=== PATIENT | female | born 1975 | race Caucasian/White ===

== ENCOUNTER → 2020-06-04 | Outpatient (CLI) | payer BC ==
--- NOTE | 2020-06-04 13:18 | XR ---
EXAMINATION TYPE: XR Hip Complete LT DATE OF EXAM: 06/04/2020 COMPARISON: NONE HISTORY: Pain TECHNIQUE: 2 views submitted FINDINGS: There is no evidence of erosive change or acute fracture. Calcifications the pelvis likely vascular. IMPRESSION: 1. No evidence of acute fracture or dislocation.
== END | disposition home or self-care (01) ==
LOC: RADXRMAIN 10:32
PROVIDERS: ATTEND Physician Assistant Medical
DX: M25.552 Pain in left hip (principal)
CPT/HCPCS: 73502

== ENCOUNTER → 2020-06-18 | Outpatient (CLI) | payer BC ==
--- NOTE | 2020-06-19 09:13 | MM ---
Reason for exam: screening (asymptomatic). Baseline mammogram. History: Taking hormonal contraceptives for 15 years. Physical Findings: Nurse did not find any significant physical abnormalities on exam. MG Screening Mammo w CAD Bilateral CC, MLO, and XCCL view(s) were taken. The breast tissue is heterogeneously dense. This may lower the sensitivity of mammography. There is no discrete abnormality. These results were verbally communicated with the patient and result sheet given to the patient on 06/18/20. ASSESSMENT: Negative, BI-RAD 1 RECOMMENDATION: Routine screening mammogram of both breasts in 1 year.
== END | disposition home or self-care (01) ==
LOC: RADMAMWWP 13:52
PROVIDERS: ATTEND Family Medicine
DX: Z12.31 Encounter for screening mammogram for malignant neoplasm of breast (principal)
CPT/HCPCS: 77067

== ENCOUNTER 2020-07-23 10:37 | Emergency (ER) | payer BC ==
[2020-07-23 10:46] VITALS: BP 131/79; PULSE 98; RESP 18; TEMP 97.9
[2020-07-23] MEDS ORDERED: APIXABAN 5 MG TAB PO STA (12:10)
--- NOTE | 2020-07-23 12:50 | ED ---
Extremity Problem HPI - General Chief complaint: Extremity Problem,Nontraumatic Stated complaint: Sent from for DVT Time Seen by Provider: 07/23/20 10:47 Source: patient Mode of arrival: ambulatory Limitations: no limitations - History of Present Illness Initial comments: Patient is a 44-year-old female presenting to the emergency department from her PCPs office after discovering a DVT on ultrasound today. Patient states she has been having left leg pain it's been increasing over the past 3 weeks but the pain significantly increased over the past few days. She does have history of left-sided sciatica and thought it was that however the pain and swelling in her left calf increased over the past few days. She denies any chest pain or shortness of breath. She is recovering from Covid, she was diagnosed in January. She has been using inhalers intermittently as needed for shortness of breath. She recently went back to the gym to start working out again. Per the doctor's office, DVT was large and in the femoral vein and the recommended coming into the ER for further evaluation. She has no further complaints at this time. She has no history of DVT, she is not on a blood thinner. Her vital signs are stable upon arrival. - Related Data Home Medications Medication Instructions Recorded Confirmed Albuterol Sulfate [Albuterol 2 puff PO RT-Q4H PRN 07/23/20 07/23/20 Sulfate Hfa] Amitriptyline HCl 10 mg PO HS 07/23/20 07/23/20 Budesonide [Pulmicort Flexhaler] 2 puff INHALATION RT-HS 07/23/20 07/23/20 Cyclobenzaprine HCl 10 mg PO BID 07/23/20 07/23/20 DULoxetine HCL [Cymbalta] 60 mg PO DAILY 07/23/20 07/23/20 Levothyroxine Sodium [Synthroid] 37.5 mcg PO DAILY 07/23/20 07/23/20 SUMAtriptan succinate [Sumatriptan 6 mg SQ ONCE PRN 07/23/20 07/23/20 Succinate] Setlakin 0.15-0.03 Mg 1 tab PO DAILY 07/23/20 07/23/20 Thyroid,Pork [Director Customer Thyroid] 30 mg PO DAILY 07/23/20 07/23/20 Previous Rx's Medication Instructions Recorded Apixaban [Eliquis] 0 mg PO DIRECTED #74 tablet 07/23/20 Allergies Allergy/AdvReac Type Severity Reaction Status Date / Time Sulfa (Sulfonamide Allergy Unknown Verified 07/23/20 11:34 Antibiotics) Review of Systems ROS Statement: Those systems with pertinent positive or pertinent negative responses have been documented in the HPI. ROS Other: All systems not noted in ROS Statement are negative. Past Medical History Past Medical History: No Reported History History of Any Multi-Drug Resistant Organisms: None Reported Past Surgical History: Prostate Surgery Past Psychological History: No Psychological Hx Reported Smoking Status: Never smoker Past Alcohol Use History: None Reported Past Drug Use History: None Reported General Exam - General Exam Comments Initial Comments: GENERAL: Patient is well-developed and well-nourished. Patient is nontoxic and in no acute distress. HEAD: Atraumatic, normocephalic. EYES: Pupils equal round and reactive to light, extraocular movements intact, sclera anicteric, conjunctiva are normal. Eyelids were unremarkable. ENT: TMs normal, nares patent, oropharynx clear without exudates. Moist mucous membranes. NECK: Normal range of motion, supple without lymphadenopathy or JVD. LUNGS: Unlabored respirations. Breath sounds clear to auscultation bilaterally and equal. No wheezes rales or rhonchi. HEART: Regular rate and rhythm without murmurs, rubs or gallops. ABDOMEN: Soft, nontender, normoactive bowel sounds. No guarding, no rebound. No masses appreciated. : Deferred MUSCULOSKELETAL: Homer and has pain with palpation of the left calf, left posterior knee. She does have swelling of the left lower leg when compared to the right. There is no erythema. She is neurovascular intact, bilateral normal orthopedist pulses. Rest of extremities with adequate strength and normal range of motion. No clubbing or cyanosis. NEUROLOGICAL: Patient is alert and oriented x 3. Motor and sensory are also intact. Cranial nerves II through XII grossly intact. Symmetrical smile. Normal speech, normal gait. PSYCH: Normal mood, normal affect. SKIN: Warm, Dry, normal turgor, no rashes or lesions noted. Limitations: no limitations Course Vital Signs 07/23/20 10:43 Temperature 97.9 F Pulse Rate 98 Respiratory 18 Rate Blood Pressure 131/79 O2 Sat by Pulse 98 Oximetry Medical Decision Making - Medical Decision Making Patient is a 44-year-old female sent in for her doctor's office after this discovering a DVT today and an outpatient ultrasound. She's been having left leg pain increasing over the past 3 weeks. She does have swelling noted to the left lower leg, positive calf pain. Increases when she ambulates. Her vital signs are stable. No chest pain or shortness of breath. I did speak to the agricultural technical officer at Dr. Montes's office who performed the patient's ultrasound today, the report is not ready as the radiologist's has not reviewed get however she verbally confirmed that the blood clot does not extend up into the external iliac vein or the common femoral vein. It does extend from the femoral vein down to the popliteal vein. I did speak with Dr. Krishnamurthy who is okay with starting patient on anticoagulant and discharged home with follow-up in the office. We did start patient on eliquis, first dose given in the ER. Rest of prescription sent to pharmacy. Patient is stable for discharge. She is in agreement with this plan of care. I also recommended elevation, compression. Patient will follow up with vascular surgeon. Return parameters were discussed with the patient she verbalized understanding. Case discussed with Dr. Vigil. Disposition Clinical Impression: Deep vein thrombosis (DVT) of left lower extremity, Left leg pain Disposition: HOME SELF-CARE Condition: Stable Instructions (If sedation given, give patient instructions): Deep Vein Thrombosis (ED) Additional Instructions: Please return to the Emergency Department if symptoms worsen or any other concerns. Take medication as prescribed. Follow-up with vascular doctor as discussed. Prescriptions: Apixaban [Eliquis] 0 mg PO DIRECTED #74 tablet Is patient prescribed a controlled substance at d/c from ED?: No Referrals: Cesar Mcginnis MD [Primary Care Provider] - 1-2 days Uriah Krishnamurthy DO [Doctor of Osteopathic Medicine] - 1-2 days Time of Disposition: 12:50
[2020-07-23] MEDS ORDERED: ACET/COD 300 MG/30 MG STARTER PACK 6 TAB BTL PO STA (13:06)
== END 2020-07-23 13:08 | disposition home or self-care (01) ==
LOC: EC 10:37
DX: I82.402 Acute embolism and thrombosis of unspecified deep veins of left lower extremity (principal)
CPT/HCPCS: 99283

== ENCOUNTER → 2020-12-02 | Outpatient (CLI) | payer BC ==
--- NOTE | 2020-12-02 18:27 | CONS ---
CONSULTATION DATE OF SERVICE: 12/02/2020. 45-year-old lady has been evaluated in [facility] for excessive daytime sleepiness and for possible obstructive sleep apnea-hypopnea syndrome. SLEEP SCHEDULE: Patient's usual sleep schedule from 10 p.m. to 5 a.m. on weekdays and from 10 p.m. to 8 a.m. on weekends. FALLING ASLEEP: Sometimes she has problems with falling asleep, but not for very long time. She has TV set in bedroom. She usually sleeps on the back and side position. According to her , she snores and she wakes up from sleep up to 4 times with up to 2 episodes of nocturia. Sometimes episodes of leg jerking during the night and restless leg symptoms. In the morning, the patient wakes up tired. Falling asleep during the day. [place] Sleepiness Scale is 9. She has problems with concentration and irritability. PAST MEDICAL HISTORY: Positive for hypothyroidism, left leg deep venous thrombosis, migraine. PAST SURGICAL HISTORY: Tonsillectomy, uterus ablation. MEDICATIONS: Synthroid 75 mcg, [place] 40 mcg once a day, Eliquis 2.5 mg once a day, duloxetine 60 mg once a day, Nortek as needed for migraines. SOCIAL HISTORY: Positive for smoking about half pack a day for 20 years, quit 8 years ago. Alcohol consumption: None. FAMILY HISTORY: Snoring. REVIEW OF SYSTEMS: Snoring, awakenings from sleep, sleepiness during the day. PHYSICAL EXAMINATION: GENERAL: lady without distress. BP 136/83, HR 89, RR 12, height 5 feet 6 inches, weight 255, body mass index 41.3, temperature 97.1, oxygen saturation at room air 98%. Oropharynx: Low position of soft palate, Mallampati 2-3. NECK 14 inches in circumference. Neck: Supple, no JVD. Thyroid is not palpable. LUNGS: Clear to percussion and to auscultation. Good air exchange. No wheezing or rhonchi. HEART: S1, S2 regular. No murmurs, gallops, or rubs. ABDOMEN: Obese. Soft and nontender. Bowel sounds are present. No organomegaly appreciated. EXTREMITIES: No clubbing or cyanosis. TELEHEALTH NURSE EDUCATOR: Awake, alert, and oriented X3. Cranial nerves 2 to 7 intact. There is no fasciculation or atrophy. noted. No focal deficits observed. IMPRESSION: 1. Snoring, multiple awakenings from sleep, episodes of excessive daytime sleepiness, possible obstructive sleep apnea-hypopnea syndrome. 2. Obesity, BMI 41.3. 3. Jerking movements during the sleep, possibly periodic limb movements. 4. Restless leg symptoms. 5. Status post uterus ablation. 6. Hypothyroidism. 7. Status post left leg deep venous thrombosis. 8. Migraines. 9. Status post tonsillectomy. PLAN: 1. I will proceed with home sleep apnea test to check patient breathing during sleep. 2. If sleep study will be negative for obstructive sleep apnea, we should proceed with polysomnogram to check the patient leg movements during sleep with following multiple sleep latency test for objective evaluation of her symptoms of excessive daytime sleepiness. Her main complain during this visit is sleepiness and tiredness. 3. Sleep hygiene with time in bed for at least 8 hours. 4. No driving if feeling sleepiness. 5. Losing weight. 6. I will see patient for follow up visit to explain results of testing and following plan. Thank you very much for referring this patient for consultation. Sincerely, Andi Ospina MD, PhD, FAASM Diplomat of [employer] Sleep Medicine Board of [employer] Claim Representative of [facility] [place] MMODL / ROBELN: [id number] /
== END | disposition home or self-care (01) ==
LOC: SLEEP 13:58
PROVIDERS: ATTEND Internal Medicine
DX: G47.33 Obstructive sleep apnea (adult) (pediatric) (principal); E66.9 Obesity, unspecified; Z68.41 Body mass index [BMI] 40.0-44.9, adult; E03.9 Hypothyroidism, unspecified; G43.909 Migraine, unspecified, not intractable, without status migrainosus
CPT/HCPCS: 99211

== ENCOUNTER → 2022-10-12 | Outpatient (CLI) | payer BC ==
--- NOTE | 2022-10-12 10:14 | MM ---
Reason for Exam: Screening (asymptomatic). Last mammogram was performed 2 year(s) and 4 month(s) ago. Patient History: Menarche at age 12. Perimenopausal. Hormonal Contraceptives for 15 years until age 45. Last menstrual period: 09/28/2022 Risk Values: Meggan 5 year model risk: 0.6%. NCI Lifetime model risk: 6.8%. Prior Study Comparison: 06/18/2020 Bilateral Screening Mammogram, [facility]. Tissue Density: The breast tissue is heterogeneously dense. This may lower the sensitivity of mammography. Findings: Analyzed By CAD. There is no suspicious group of microcalcifications within either breast. No suspicious mass in the left breast. Asymmetry demonstrated within the inferior right breast only on the MLO view at middle depth. Overall Assessment: Incomplete: need additional imaging evaluation, BI-RAD 0 Management: Diagnostic Mammogram of the right breast. A clinical breast exam by your physician is recommended on an annual basis and results should be correlated with mammographic findings. [facility] will attempt to contact patient to return for supplemental views and ultrasound if indicated. Note on Meggan scores and lifetime risk: 1. A Meggan score greater than 3% is considered moderate risk. If this is the case, consider specialist referral to assess eligibility for a risk reducing agent. If overall lifetime risk for the development of breast cancer is 20% or higher, the patient may qualify for future screening with alternating mammogram and breast MRI. Electronically signed and approved by: Christian Tirado D.O.
== END | disposition home or self-care (01) ==
LOC: RADMAMWWP 07:24
PROVIDERS: ATTEND Family Medicine
DX: Z12.31 Encounter for screening mammogram for malignant neoplasm of breast (principal)
CPT/HCPCS: 77067

== ENCOUNTER → 2022-10-17 | Outpatient (CLI) | payer BC ==
--- NOTE | 2022-10-17 08:46 | MM ---
Reason for Exam: Additional evaluation requested from abnormal screening. Last screening mammogram was performed less than 1 month ago. Patient History: Menarche at age 12. Perimenopausal. Hormonal Contraceptives for 15 years until age 45. Risk Values: Meggan 5 year model risk: 0.6%. NCI Lifetime model risk: 6.8%. Tissue Density: Right: There are scattered fibroglandular densities. Findings: Analyzed By CAD. Area of concern compresses on spot compression imaging. No new suspicious masses, calcifications or distortions. Overall Assessment: Benign, BI-RAD 2 Management: Screening Mammogram of both breasts in 1 year. Results were given to the patient verbally at the time of exam. Patient should continue monthly self-breast exams. A clinical breast exam by your physician is recommended on an annual basis. This exam should not preclude additional follow-up of suspicious palpable abnormalities. Note on Meggan scores and lifetime risk: 1. A Meggan score greater than 3% is considered moderate risk. If this is the case, consider specialist referral to assess eligibility for a risk reducing agent. 2. If overall lifetime risk for the development of breast cancer is 20% or higher, the patient may qualify for future screening with alternating mammogram and breast MRI. Electronically signed and approved by: Ben Miller DO
== END | disposition home or self-care (01) ==
LOC: RADMAMWWP 08:19
PROVIDERS: ATTEND Family Medicine
DX: R92.8 Other abnormal and inconclusive findings on diagnostic imaging of breast (principal)
CPT/HCPCS: 77061; 77065

== ENCOUNTER → 2024-01-10 | Outpatient (CLI) | payer BC ==
--- NOTE | 2024-01-11 10:31 | MM ---
Reason for Exam: Screening (asymptomatic). Last mammogram was performed 1 year(s) and 2 month(s) ago. Patient History: Menarche at age 12. Patient has no children. Perimenopausal. Hormonal Contraceptives for 15 years until age 45. Risk Values: Meggan 5 year model risk: 1.0%. NCI Lifetime model risk: 10.2%. Prior Study Comparison: 06/18/2020 Bilateral Screening Mammogram, [facility]. 10/12/2022 Bilateral MG screening mammo w CAD, [facility]. 10/17/2022 Right MG 3D work up w/cad RT, [facility]. Tissue Density: The breasts are heterogeneously dense, which may obscure small masses. Findings: Analyzed By CAD. There is increasing global asymmetry right upper outer quadrant middle to posterior depth. This may represent superimposition shadow but further evaluation is recommended. Other areas of asymmetric density remain unchanged. Overall Assessment: Incomplete: need additional imaging evaluation, BI-RAD 0 Management: Special View Mammogram of the right breast. Diagnostic Breast Ultrasound of the right breast. . [facility] will attempt to contact patient to return for supplemental views and ultrasound if indicated. [facility], , 01/11/2024 10:28 AM. Electronically signed and approved by: Sunitha Watt M.D. Radiologist
== END | disposition home or self-care (01) ==
LOC: RADMAMWWP 07:05
PROVIDERS: ATTEND Family Medicine
CPT/HCPCS: 77063; 77067

== ENCOUNTER → 2024-01-19 | Outpatient (CLI) | payer BC ==
--- NOTE | 2024-01-19 07:44 | MM ---
Reason for Exam: Additional evaluation requested from abnormal screening. Last screening mammogram was performed less than 1 month ago. Patient History: Menarche at age 12. Patient has no children. Postmenopausal. Hormonal Contraceptives for 15 years until age 45. Risk Values: Meggan 5 year model risk: 1.0%. NCI Lifetime model risk: 10.2%. Prior Study Comparison: 06/18/2020 Bilateral Screening Mammogram, [facility]. 10/12/2022 Bilateral MG screening mammo w CAD, [facility]. 10/17/2022 Right MG 3D work up w/cad RT, [facility]. 01/10/2024 Bilateral MG 3D screening mammo w/cad, [facility]. Tissue Density: Right: The breasts are heterogeneously dense, which may obscure small masses. Findings: Analyzed By CAD. Abdomen appears stable Focal asymmetry in the upper outer right breast disperses normally on compression. No suspicious asymmetry on the medial lateral view. No suspicious groups of microcalcifications, spiculated or lobular masses, architectural distortion or other secondary signs of malignancy are mammographically apparent. Overall Assessment: Benign, BI-RAD 2 Management: Screening Mammogram of both breasts in 1 year. A negative mammogram report should not preclude additional follow up of suspicious palpable abnormalities. Patient should continue monthly self breast exam. A clinical breast exam by your physician is recommended on an annual basis and results should be correlated with mammographic findings. Note on Meggan scores and lifetime risk: 1. A Meggan score greater than 3% is considered moderate risk. If this is the case, consider specialist referral to assess eligibility for a risk reducing agent. 2. If overall lifetime risk for the development of breast cancer is 20% or higher, the patient may qualify for future screening with alternating mammogram and breast MRI. [facility], , 01/19/2024 7:41 AM. Electronically signed and approved by: Anjel Mccurdy D.O. Radiologis
== END | disposition home or self-care (01) ==
LOC: RADMAMWWP 07:04
PROVIDERS: ATTEND Family Medicine
DX: R92.8 Other abnormal and inconclusive findings on diagnostic imaging of breast (principal); R92.331 Mammographic heterogeneous density, right breast; Z78.0 Asymptomatic menopausal state
CPT/HCPCS: 77061; 77065

== ENCOUNTER → 2024-09-12 | Outpatient (CLI) | payer BC ==
--- NOTE | 2024-09-12 13:08 | US ---
EXAMINATION TYPE: US venous doppler duplex LE LT DATE OF EXAM: 09/12/2024 12:55 PM COMPARISON: NONE CLINICAL INDICATION: Female, 48 years old with history of R22.42 SWELLING, MASS AND LUMP LLE Z86.718 HX; , Pain TECHNIQUE: The lower extremity deep venous system is examined utilizing real time linear array sonog juan jose with graded compression, color doppler sonography, and spectral doppler. SIDE PERFORMED: Left FINDINGS: VESSELS IMAGED: Common Femoral Vein Deep Femoral Vein Greater Saphenous Vein * Femoral Vein Popliteal Vein Small Saphenous Vein * Proximal Calf Veins (* superficial vessels) Left Leg: Appears negative for DVT IMPRESSION: No evidence of deep vein thrombosis of the left lower extremity. [facility], , 09/12/2024 1:06 PM
== END | disposition home or self-care (01) ==
LOC: RADUSWWP 12:32
PROVIDERS: ATTEND Family Medicine
DX: R22.42 Localized swelling, mass and lump, left lower limb (principal); Z86.718 Personal history of other venous thrombosis and embolism

== ENCOUNTER → 2024-10-11 | Outpatient (CLI) | payer BC ==
--- NOTE | 2024-10-11 12:47 | XR ---
EXAMINATION TYPE: XR hand complete RT DATE OF EXAM: 10/11/2024 12:40 PM INDICATION: Patient age:Female; 48 years old; Reason for study: R22.31; [facility]. pain COMPARISON: None TECHNIQUE: Frontal, lateral and oblique views of the right hand were obtained. FINDINGS: Normal alignment of the visualized joints. No acute osseous pathology is identified. No e vidence of soft tissue swelling. No osseous erosions. IMPRESSION: No acute osseous pathology. [facility], , 10/11/2024 12:44 PM
== END | disposition home or self-care (01) ==
LOC: LABWHC1 12:08
PROVIDERS: ATTEND Family Medicine
DX: R22.31 Localized swelling, mass and lump, right upper limb (principal)